=== PATIENT | female | born 1990 | race Caucasian/White ===

== ENCOUNTER 2021-12-28 12:42 | Outpatient (CLI) | payer BC, SELFPAY | END 2021-12-28 12:43 | disposition home or self-care (01) | DX: Z34.90 Encounter for supervision of normal pregnancy, unspecified, unspecified trimester (principal) | CPT/HCPCS: 36415; 84702 ==

== ENCOUNTER 2021-12-31 13:31 | Outpatient (CLI) | payer BC, SELFPAY | END 2021-12-31 13:32 | disposition home or self-care (01) | DX: O03.9 Complete or unspecified spontaneous abortion without complication (principal) | CPT/HCPCS: 36415; 84702 ==

== ENCOUNTER 2022-01-03 13:01 | Outpatient (CLI) | payer BC, SELFPAY ==
[2022-01-03 13:40] LABS: Basophils Percent Auto 0.5 % (0.0-3.0); Eosinophils Percent Auto 5.2 % (0.0-7.0); Hematocrit 41.7 % (33.0-51.0); Immature Granulocytes Abs Auto 0.04 K/uL (0.00-0.30); Lymphocytes Percent Auto 31.8 % (20-44); Mean Corpuscular HGB Conc 34 gm/dL (32-36); Mean Corpuscular Hemoglobin 27 pg (26-34); Mean Corpuscular Volume 79 fL (80-100); Monocytes Percent Auto 6.1 % (0.0-11.0); Neutrophils Percent Auto 56.1 % (42.0-72.0); Platelet Count* 363 K/uL (140-440); RDW Coefficient of Variation % 13.4 % (11.5-15.5); Red Blood Count 5.25 m/uL (4.00-5.20); White Blood Count* 12.57 K/uL (4.50-11.00)
[2022-01-03 13:44] LABS: Slide Review Reflex No
[2022-01-03 13:48] LABS: Albumin* 4.2 g/dL (3.3-5.0)
[2022-01-03 13:49] LABS: Chloride* 105 mmol/L (96-114); Potassium* 3.8 mmol/L (3.6-5.1); Sodium* 138 mmol/L (135-149)
[2022-01-03 13:51] LABS: Aspartate Amino Transferase* 20 U/L (12-35); Bilirubin Total* 0.5 mg/dL (0.1-1.5); Carbon Dioxide* 24 mmol/L (20-32); Creatinine* 0.6 mg/dL (0.5-1.5); Estimated Glomerular Filt Rate 121 ml/min
[2022-01-03 13:52] LABS: Alanine Aminotransferase* 23 U/L (4-35); Alkaline Phosphatase* 84 U/L (40-150); Blood Urea Nitrogen* 9 mg/dL (5-24); Calcium* 8.9 mg/dL (8.4-10.6); Glucose* 91 mg/dL (60-115); Total Protein* 7.4 g/dL (6.0-8.3)
[2022-01-07 07:18] LABS: Progesterone, HPLC-MS/MS 2.49 ng/mL
== END 2022-01-03 13:02 | disposition home or self-care (01) ==
LOC: LAB 13:03
DX: O00.109 Unspecified tubal pregnancy without intrauterine pregnancy (principal)
CPT/HCPCS: 36415; 80053; 84144; 85025

== ENCOUNTER 2022-01-08 15:46 | Outpatient (REF) | payer BC, SELFPAY | END 2022-01-08 15:47 | disposition home or self-care (01) | LOC: LAB 15:46 | DX: O00.109 Unspecified tubal pregnancy without intrauterine pregnancy (principal) | CPT/HCPCS: 36415; 84702 ==

== ENCOUNTER 2022-01-11 13:21 | Outpatient (CLI) | payer BC, SELFPAY | END 2022-01-11 13:22 | disposition home or self-care (01) | DX: O00.109 Unspecified tubal pregnancy without intrauterine pregnancy (principal) | CPT/HCPCS: 36415; 84702 ==

== ENCOUNTER 2022-01-18 11:09 | Outpatient (CLI) | payer BC, SELFPAY | END 2022-01-18 11:10 | disposition home or self-care (01) | DX: O00.109 Unspecified tubal pregnancy without intrauterine pregnancy (principal) | CPT/HCPCS: 36415; 84702 ==

== ENCOUNTER 2022-02-15 14:38 | Outpatient (CLI) | payer BC, SELFPAY ==
[2022-02-15 15:54] LABS: HCG Quantitative* 9.89 mIU/mL
== END 2022-02-15 14:39 | disposition home or self-care (01) ==
DX: O00.101 Right tubal pregnancy without intrauterine pregnancy (principal)
CPT/HCPCS: 36415; 84702

== ENCOUNTER 2022-09-11 12:29 | Outpatient (RCR) | payer BC, SELFPAY ==
[2022-09-12 14:34] LABS: Estradiol Premenol Female <20 pg/mL
[2022-09-16 14:39] LABS: Progesterone, HPLC-MS/MS <0.10 ng/mL
== END 2023-08-24 09:48 | disposition home or self-care (01) ==
LOC: LAB 12:29
PROVIDERS: Visit Provider Physician Assistant Medical
DX: E28.2 Polycystic ovarian syndrome (principal); Z51.89 Encounter for other specified aftercare
CPT/HCPCS: 36415; 82670; 84144

== ENCOUNTER 2023-10-29 11:57 | Outpatient (CLI) | payer BC, SELFPAY ==
[2023-11-03 08:43] LABS: Progesterone, HPLC-MS/MS 39.86 ng/mL
== END 2023-10-29 11:58 | disposition home or self-care (01) ==
LOC: LAB 12:00
PROVIDERS: Visit Provider Physician Assistant
DX: O00.109 Unspecified tubal pregnancy without intrauterine pregnancy (principal)
CPT/HCPCS: 36415; 84144

== ENCOUNTER 2024-02-02 14:28 | Outpatient (RCR) | payer BC, SELFPAY ==
[2022-01-25 14:09] LABS: HCG Quantitative* 163.66 mIU/mL
[2022-02-03 12:58] LABS: HCG Quantitative* 50.53 mIU/mL
[2022-05-24 13:58] LABS: HCG Quantitative* 9.45 mIU/mL
[2022-05-27 14:26] LABS: HCG Quantitative* 48.34 mIU/mL
[2022-05-27 21:12] LABS: Progesterone, HPLC-MS/MS 14.23 ng/mL
[2022-05-30 14:06] LABS: HCG Quantitative* 94.57 mIU/mL
[2022-06-01 01:50] LABS: Progesterone, HPLC-MS/MS 21.84 ng/mL
[2022-06-02 14:32] LABS: HCG Quantitative* 24.84 mIU/mL
[2022-06-02 15:19] LABS: Progesterone, HPLC-MS/MS 21.73 ng/mL
[2022-06-04 11:56] LABS: HCG Quantitative* 9.79 mIU/mL
[2022-06-06 07:03] LABS: Progesterone, HPLC-MS/MS 1.68 ng/mL
[2022-06-06 19:44] LABS: Progesterone, HPLC-MS/MS 1.31 ng/mL
[2022-06-12 15:00] LABS: HCG Quantitative* < 2.39 mIU/mL
[2022-06-16 16:16] LABS: Progesterone, HPLC-MS/MS <0.10 ng/mL
[2023-02-13 14:40] LABS: Albumin* 4.6 g/dL (3.3-5.0)
[2023-02-13 14:41] LABS: Chloride* 105 mmol/L (96-114); Sodium* 140 mmol/L (135-149)
[2023-02-13 14:43] LABS: Anion Gap 8 mEq/L (7-15); Bilirubin Total* 0.7 mg/dL (0.1-1.5); Carbon Dioxide* 27 mmol/L (20-32); Creatinine* 0.6 mg/dL (0.5-1.5); Estimated Glomerular Filt Rate 121 ml/min
[2023-02-13 14:44] LABS: Alanine Aminotransferase* 37 U/L (4-35); Alkaline Phosphatase* 84 U/L (40-150); Aspartate Amino Transferase* 30 U/L (12-35); Blood Urea Nitrogen* 13 mg/dL (5-24); Calcium* 9.8 mg/dL (8.4-10.6); Glucose* 77 mg/dL (60-115); Total Protein* 8.2 g/dL (6.0-8.3)
[2023-03-05 15:05] LABS: Free T4 Free Thyroxine* 1.69 ng/dL (0.70-1.85)
[2023-03-07 23:53] LABS: Total T3 131 ng/dL (80-200)
[2023-04-09 14:47] LABS: Albumin* 4.4 g/dL (3.3-5.0); Chloride* 106 mmol/L (96-114); Potassium* 3.9 mmol/L (3.6-5.1); Sodium* 142 mmol/L (135-149)
[2023-04-09 14:50] LABS: Alanine Aminotransferase* 35 U/L (4-35); Alkaline Phosphatase* 75 U/L (40-150); Anion Gap 9 mEq/L (7-15); Aspartate Amino Transferase* 25 U/L (12-35); Bilirubin Total* 0.8 mg/dL (0.1-1.5); Blood Urea Nitrogen* 13 mg/dL (5-24); Carbon Dioxide* 27 mmol/L (20-32); Creatinine* 0.6 mg/dL (0.5-1.5); Estimated Glomerular Filt Rate 121 ml/min; Glucose* 99 mg/dL (60-115); Total Protein* 7.9 g/dL (6.0-8.3)
[2023-04-09 14:51] LABS: Calcium* 9.4 mg/dL (8.4-10.6)
[2023-04-09 17:40] LABS: Free T4 Free Thyroxine* 1.77 ng/dL (0.70-1.85)
[2023-04-11 02:25] LABS: Estradiol Premenol Female 56 pg/mL
[2023-04-12 08:59] LABS: Free T3 3.4 pg/mL (2.5-4.3)
[2023-07-09 14:40] LABS: Estradiol Premenol Female 142 pg/mL
[2023-07-10 14:55] LABS: Progesterone, HPLC-MS/MS 26.09 ng/mL
[2023-10-20 22:03] LABS: Progesterone, HPLC-MS/MS 30.05 ng/mL
== END 2024-03-03 14:49 | disposition home or self-care (01) ==
LOC: LAB 14:28
PROVIDERS: Physician Assistant Medical; PCP Internal Medicine; Visit Provider Physician Assistant
DX: O00.90 Unspecified ectopic pregnancy without intrauterine pregnancy (principal); E28.2 Polycystic ovarian syndrome; E03.9 Hypothyroidism, unspecified; I10 Essential (primary) hypertension
CPT/HCPCS: 36415; 80053; 82670; 84144; 84439; 84443; 84480; 84481; 84702

== ENCOUNTER → 2024-10-05 10:50 | Outpatient (RCR) | payer BC, SELFPAY | END | disposition home or self-care (01) | LOC: LAB 09-24 11:00 | PROVIDERS: Visit Provider Physician Assistant | DX: Z53.09 Procedure and treatment not carried out because of other contraindication (principal) ==

== ENCOUNTER 2024-12-02 14:14 | Outpatient (REF) | payer BC, SELFPAY ==
--- OUTSIDE RECORDS SUMMARY | 2024-12-03 00:16 | XMS_ITS | Clinical Summary ---
Author Organization [facility] Address [address] [place] [address] Care Team Providers Care Licensing Coordinator Name Role Phone Shavon Celestin MD Primary Care Provider [phone] Source Comments You are receiving this document as you are listed as the primary care provider,follow-up provider, or the patient has been referred to you for consultation.This is in compliance with the Medicare and[facility] EHR Incentive Program,which states Providers who transition their patient to another setting of careor provider of care or refers their patient to another provider of care shouldprovide summary care record for each transition of care or referral. [facility] Allergies No known active allergies Medications levothyroxine (AKA SYNTHROID) 100 MCG tabletIndications: Primary hypothyroidism (HRC) Take 1 tablet by mouth daily (every 24 hours). 90 tablet 3 08/01/19 16 Active medroxyPROGESTERon e (AKA PROVERA) 10 MG tablet 1 tablet daily for 10 days if no menses and urine test is negative 10 tablet 3 08/01/19 16 Active Additional Information Patient not taking.Reported on 11/01/2022 labetalol (TRANDATE) 100 MG tablet Take 1 Tablet (100 mg) by mouth two times a day. Active labetalol (TRANDATE) 100 MG tablet Take 1 Tablet (100 mg) by mouth two times a day. 60 Tablet 12/18/19 23 Active Active Problems Problem Noted Date Diagnosed Date Primary hypothyroidism 08/01/2015 Other acne 08/20/2006 Overview (01/15/2017): LW Onset: 2004 ; Acne Vulgaris Irregular menstrual cycle 08/20/2006 Overview (01/15/2017): LW Onset: 06/01 ; Menstrual Irregularity NOS Contraceptive management 08/20/2006 Overview (01/15/2017): LW Onset: 07/30 ; Contraceptive Management NOS Immunizations Immunization Administration Dates Next Due 4vHPV (Gardasil) 05/29/2007,12/29/2006, 7 DTP 09/16/1990, 1,02/28/1989,02/28/1989 ,1988,1988,1988, 9 DTaP 10/25/1993 HepB Ped/Adol (0-18 yrs) 09/24/2000 HepB, Unspecified Formulation 04/02/2001, 001 Hib (ActHIB) 11/21/1989 Hib (HbOC) 11/21/1989 MCV4 (Menactra) 12/29/2006 MMR 10/17/1998,11/21/1989,11/21/1989 OPV, Trivalent (Orimune or tOPV) 994,09/16/1990,09/16/1990,1988 ,1988,1988,1988 Td 04/23/2002 Varicella 05/24/1997(Deferred: Immune by Dg ma) Social History Tobacco Use Types Packs/Day Years Used Date Smoking Tobacco: Former Cigarettes Smokeless Tobacco: Never Tobacco Cessation:Counseling Given: Not Answered Comments:Smoking History Packs/day: Comments No Sex and Gender Information Value Date Recorded Sex Assigned at Not on file Legal Sex Female 3:47 AM CDT Gender Identity Not on file Sexual Orientation Not on file Last Filed Vital Signs Vital Sign Reading Time Taken Comments Blood Pressure 149/90 12/17/2022 2:15 PM CDT Pulse 89 12/17/2022 2:15 PM CDT Temperature 36.8 C (98.3 F) 12/17/2022 1:28 PM CDT Respiratory Rate 16 12/17/2022 1:28 PM CDT Oxygen Saturation 100% 12/17/2022 1:28 PM CDT Inhaled Oxygen Concentration - - Weight 98.5 kg (217 lb 1.6 oz) 08/01/2015 1:28 P M MEDICAL RESEARCH TECH Height 160 cm (5' 3) 08/01/2015 1:28 PM MEDICAL RESEARCH TECH Body Mass Index 38.46 08/01/2015 1:28 PM MEDICAL RESEARCH TECH Plan of Treatment Health Maintenance Due Date Last Done Comments DTaP/Tdap/Td Vaccine (6 - Tdap) 04/24/2002 04/23/2002, 10/25/1993, 09/16/1990, Additional history exists Adult Preventive Visit 2006 10/17/1998, 1993 Cervical Cancer Screening Due 12/18/2007 12/17/2007, 08/20/2006 COVID-19 Vaccine ( season) 2024 Influenza Vaccine (#1) 2025 Zoster/Shingles Vaccine (1 of 2) 2038 Hib Vaccine Completed 11/21/1989, 11/21/1989 IPV (Polio) Vaccine Completed 08/25/1993, 09/16/1990, 09/16/1990, Additional history exists HepB Vaccine Completed 04/02/2001, 10/25, 09/24/2000 MCV4 Vaccine Completed 12/29/2006 HPV Vaccine Completed 05/29/2007, 10/2006, 10/28/2006 HIV Screening (Preventive Services) Completed 12/17/2007 Hep C Screening (Preventive Services) Completed 12/17/2007 HepA Vaccine Aged Out No longer eligi ble based on patient's age to complete this topic Meningococcal B Vaccine Aged Out No l onger eligible based on patient's age to complete this topic Pneumococcal Vaccine Aged Out No long er eligible based on patient's age to complete this topic Procedures Procedure Name Priority Date/Time Associated Diagnosis Comments HIV ANTIBODY Routine 12/17/2007 9:45 AM CDT HEPATITIS C ANTIBODY, WITH REFLEX (ANTI-HCV) Routine 12/17/2007 9:45 AM CDT ANATOMICAL PATH LIQUID BASED Routine 12/17/2007 9:37 AM CDT from Last 3 Months or Most Recently Relevant to Health Maintenance Results * HIV Antibody (12/17/2007 9:45 AM CDT) HIV 1/HIV 2 Non Reac Non Reac HP CONVERSION 12/17/2007 9:45 AM CDT [facility] Final Result Performing Organization Address City/[facility] de Phone Number HP CONVERSION * Hepatitis C Antibody, with Reflex (12/17/2007 9:45 AM CDT) Hepatitis C Antibody Non Reac Non Reac HP CONVERSION 12/17/2007 9:45 AM CDT [facility] Final Result Performing Organization Address [facility] de Phone Number HP CONVERSION * Pap Smear (12/17/2007 9:37 AM CDT) PAP Smear Liquid Based SEE TEXT No normal range HP CONVERSION Comment: Patient: RODRIGOSTEVENMARCE CERVICAL CYTOLOGY REPORT Pathology # [id number] Date Obtained: Date Received: CYTOLOGIC IMPRESSION: Negative for intraepithelial lesion or malignancy. Fungal organisms identified. Verified 12/23/07 by: (electronic signature) ADDITIONAL DATA LMP: CLINICAL HIST LIQUID BASED PAP CERVICAL SPECIMEN ADEQUACY: Satisfactory. ENDOCERVICAL CELLS: Present. 12/17/2007 9:37 AM CDT [facility] Final Result Performing Organization Address City/[facility] de Phone Number HP CONVERSION from Last 3 Months or Most Recently Relevant to Health Maintenance Insurance [facility] [id number] [place] [id number] * Guarantor: STEPH RODRIGUEZ Account Type Relation to Patient Date of Phone Billing Address Personal/Family 1947 [id number] [place] [id number] Care Teams Licensing Coordinator Relationship Specialty Start Date End Date Shavon Celestin MD [address] [facility] [address] [place] [address] PCP - General 07/28/15
--- OUTSIDE RECORDS SUMMARY | 2024-12-03 00:16 | XMS_ITS | Encounter Summary ---
Author Organization [facility] Address [address] [place] [address] Care Team Providers Care [facility] Owner Name Role Phone Keena Snow MD Primary Care Provider [phone] Encounter Details Date Type Department Care Team (Late st Contact Info) Description 12/02/2024 Medical Correspondence [facility] Health Information Management [address] [facility] [address] [place] [address] Scan, Non-Provider Social History Tobacco Use Types Packs/Day Years Used Date Smoking Tobacco: Former Smokeless Tobacco: Never Alcohol Use Standard Drinks/Week Comments Not Currently 0 (1 standard drink = 0.6 oz pur e alcohol) [place] Depression Scale Answer Date Recorded Last EPDS Total Score Not on file 09/07/2021 The thought of harming myself has occurred to me . Never 09/07/2021 Adolescent Education Answer Date Record ed Getting School Help Needed Not on file 02/15 Comments No Sex and Gender Information Value Date Recorded Sex Assigned at Not on file Legal Sex Female 9:38 AM CDT Gender Identity Not on file Sexual Orientation Not on file documented as of this encounter Plan of Treatment Not on file documented as of this encounter Visit Diagnoses Not on filedocumented in this encounter Care Teams [facility] Owner Relationship Specialty Start Date End Date Keena Snow MD [facility] [address] [place] [address] PCP - General spraying machine operator 12/25/23 documented as of this encounter
--- OUTSIDE RECORDS SUMMARY | 2024-12-03 00:16 | XMS_ITS | Encounter Summary ---
Author Organization [facility] Address [address] [place] [address] Care Team Providers Care Residential Mortgage Underwriter Name Role Phone Keena Snow MD Primary Care Provider [phone]- [phone] Reason for Visit * Reason Comments Medication Refill Encounter Details Date Type Department Care Team (Late st Contact Info) Description 11/03/2024 Refill [facility] [address] [place] [phone] Keena Snow MD [facility] [address] [place] [phone] Medication Refill Social History Tobacco Use Types Packs/Day Years Used Date Smoking Tobacco: Former Smokeless Tobacco: Never Alcohol Use Standard Drinks/Week Comments Not Currently 0 (1 standard drink = 0.6 oz pur e alcohol) [place] Depression Scale Answer Date Recorded Last EPDS [...] documented as of this encounter Visit Diagnoses Diagnosis Hypothyroidism, unspecified type documented in this encounter Care Teams Residential Mortgage Underwriter Relationship Specialty Start Date End Date Keena Snow MD [facility] [address] [place] [address] PCP - General ski patroller 12/25/23 documented as of this encounter
--- OUTSIDE RECORDS SUMMARY | 2024-12-03 00:16 | XMS_ITS | Clinical Summary ---
Author Organization [facility] Address [address] [place] [address] Care Team Providers Care Information Resources Manager Name Role Phone Keena Snow MD Primary Care Provider [phone]- [phone] Allergies No known active allergies Medications metFORMIN (GLUCOPHAGE) 500 MG tablet Take 500 mg by mouth daily (with breakfast) Active labetalol (NORMODYNE) 300 MG tabletIndications :Chronic hypertension Take 1 tablet (300 mg) by mouth every 12 hours 60 tablet 5 12/26/2023 Active levothyroxine (SYNTHROID/LEVOTH ROID) 175 MCG tabletIndications :Hypothyroidism, unspecified type Take 1 tablet (175 mcg) by mouth daily 30 tablet 5 12/26/2023 Active NIFEdipine ER (ADALAT CC) 30 MG 24 hr tabletIndications :Chronic hypertension Take 1 tablet (30 mg) by mouth daily 30 tablet 5 12/27/2023 Active ibuprofen (ADVIL/MOTRIN) 800 MG tabletIndications :IUFD at less than 20 weeks of gestation Take 1 tablet (800 mg) by mouth every 8 hours as needed 30 tablet 1 12/26/2023 Active Active Problems Problem Noted Date Diagnosed Date IUFD at less than 20 weeks of gestation 12/25/19 24 Malignant neoplasm of fallop michel tube, 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 Encounter for triage in patient 022 09/03/2021 Encounters Date Type Department Care Team Description 12/02/2024 Medical Correspondence [facility] Information Management [address] [place] [address] [address] [place] [address] Scan, Non-Provider 12/01/2024 Transcribe Orders GENERIC EXTERNAL DATA DEPARTMENT Petrona Presley PA-C Chronic hypertension (Primary Dx) 11/19/2024 Orders Only [facility] [place] [address] [place] [address] Ariana Ventura RN History of IUFD (Primary Dx); HTN in , chronic; AMA (advanced maternal age) multigravida 35+ 11/18/2024 Medical Correspondence [facility] Health Information Management [address] [facility] [address] [place] [address] Scan, Non-Provider 11/18/2024 Transcribe Orders [facility] [address] [place] [address] Petrona Presley PA-C related condition, antepartum (Primary Dx) 11/03/2024 Refill [facility] [address] [place] [phone] Keena Snow MD Medication Refill from Last 3 Months Immunizations Immunization Administration Dates Next Due DTAP (<7y) 10/25/1993 HIB (PRP-T) 11/21/1989 HPV Quadrivalent 05/29/2007,12/29/2006, 7 HepB, Unspecified 04/02/2001,11/20/2000 Hepatitis B, Peds (Engerix-B/Recombivax HB) 09/24/2000 Historic Hib Hib-titer 11/21/1989 Historical DTP/aP 09/16/1990, 9,1988,10/22 MMR (MMRII) 12/27/2023,10/17/1998,11/21/1989 Meningococcal ACWY (Menactra ) 12/29/2006 OPV, trivalent, live 08/25/1993,09/16/18 91,1988,10/22 Td (Adult), Adsorbed 04/23/2002 Social History Tobacco Use Types Packs/Day Years Used Date Smoking Tobacco: Former Smokeless Tobacco: Never Alcohol Use Standard Drinks/Week Comments Not Currently 0 (1 standard drink = 0.6 oz pur e alcohol) [place] Depression Scale Answer Date Recorded Last EPDS [...] Sign Reading Time Taken Comments Blood Pressure 110/68 12/27/2023 9:15 AM CDT Pulse 102 12/27/2023 9:15 AM CDT Temperature 36.8 C (98.2 F) 12/27/2023 9:15 AM CDT Respiratory Rate 16 12/27/2023 9:15 AM CDT Oxygen Saturation 98% 12/27/2023 6:00 AM CDT Inhaled Oxygen Concentration - - Weight 95.3 kg (210 lb) 11/03/2022 11:46 AM CDT Height 160 cm (5' 3) 11/03/2022 11:46 AM CDT Body Mass Index 37.2 11/03/2022 11:46 AM CDT Plan of Treatment Health Maintenance Due Date Last Done Comments ADVANCE CARE PLANNING 1988 ANNUAL REVIEW OF HM ORDERS 1988 BMP 1988 YEARLY PREVENTIVE VISIT 10/18/1999 10/17/1998, 10/25 DTAP/TDAP/TD VACCINE (6 - Tdap) 04/24/2002 04/23/2002, 10/25/1993, 09/16/1990, Additional history exists HEPATITIS C SCREENING 2006 PAP 2009 COVID-19 VACCINE ( season) 2024 PHQ-2 (once per calendar year) 2024 TSH W/FREE T4 REFLEX 12/24/2024 12/25/2023 INFLUENZA VACCINE (#1) 2025 DIABETES SCREENING 12/24/2026 12/25/2023 ZOSTER VACCINE (1 of 2) 2038 HEPATITIS B VACCINE Completed 04/02/2001, 11/20/2000, 09/24/2000 MENINGITIS VACCINE Completed 12/29/2006 HPV VACCINE Completed 05/29/2007, 10/2006, 10/28/2006 HIV SCREENING Completed 10/27/2023, 02/23/2021 PNEUMOCOCCAL VACCINE: PEDIATRICS (0 to 5 YEARS) AND AT-RISK PATIENTS (6 to 49 YEARS) Aged Out No longer eligible based on patient's age to complete this topic Procedures Procedure Name Priority Date/Time Associated Diagnosis Comments US IMAGING - HIM SCAN 10/06/2024 12:00 AM CDT HEMOGLOBIN A1C Routine 12/25/2023 5:46 PM CDT TSH WITH FREE T4 REFLEX Routine 12/25/2023 5:46 PM CDT HIV 1&2 ANTIBODY (EXTERNAL RESULT) Routine 10/27/2023 12:00 PM CDT from Last 3 Months or Most Recently Relevant to Health Maintenance Results * US Imaging - HIM Scan (10/06/2024 12:00 AM CDT) Anatomical Region Laterality Modality Other 10/06/2024 us Provider Outside G US ORDERABLES Final Result * TSH with free T4 reflex (12/25/2023 5:46 PM CDT) TSH 3.42 0.30 - 4.20 uIU/mL 12/25/2023 7:02 PM CDT [facility] Blood BLOOD SPECIMEN / Unknown Venipuncture / Unknown 12/25/2023 5:46 PM CDT 12/25/2023 6:06 PM CDT Keena Snow MD LAB - BLOOD ORDERABLES Fin al Result N LABORATORY [facility] [address] [place], [place] [address] * Hemoglobin A1c (12/25/2023 5:46 PM CDT) Hemoglobin A1C 5.1 <5.7 % 12/25/2023 6:52 PM CDT N LABORATORY Comment: Normal <5.7% Prediabetes 5.7-6.4% Diabetes 6.5% or higher Note: Adopted from ADA consensus guidelines. Blood BLOOD SPECIMEN / Unknown Venipuncture / Unknown 12/25/2023 5:46 PM CDT 12/25/2023 6:04 PM CDT Keena Snow MD LAB - BLOOD ORDERABLES Fin al Result [facility] [address] [place] [address], [facility] [[email or web address]] * HIV-1 Antibody (External Result) (10/27/2023 12:00 PM CDT) Pathologist [facility] HIV 1&2 Antibody (External) Nonreactive Nonreactive [place] [facility] 10/27/2023 12:0 0 PM CDT Patient Reported LAB - HIM EXTERNAL RESULT Final Result Performing Organization Address City/[facility] Co de Phone Number [employer] [facility] [address] [phone] from Last 3 Months or Most Recently Relevant to Health Maintenance Insurance [facility] OUT OF STATE BCBS OUT OF STATE Advance Directives For more information, please contact: [phone] * Full Code (Latest Code Status on File) Date Activated Date Inactivated Comments 12/25/2023 4:49 PM 12/27/2023 1:19 PM All basic and advanced life-sustaining interventions are performed as appropriate Question Answer Comments Code status determined by: Other (please documen t) * Full Code Date Activated Date Inactivated Comments 09/03/2021 11:29 AM 09/08/2021 5:05 PM All basic a nd advanced life-sustaining interventions are performed as appropriate Question Answer Comments Code status determined by: Other (please documen t) Care Teams Information Resources Manager Relationship Specialty Start Date End Date Keena Snow MD [facility] [address] [place] [address] PCP - General rules examiner 12/25/23
--- OUTSIDE RECORDS SUMMARY | 2024-12-03 00:16 | XMS_ITS ---
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 Past Treatment and Therapy Plans INFUSION Plan Name Start Date Discontinue Date Treatment Medications Discontinue Reason Plan Provider METHOTREXATE - ECTOPIC - SINGLE DOSE REGIMEN 01/04/2022 07/30/2023 methotrexate Patient Patricia Martinez PA-C
--- OUTSIDE RECORDS SUMMARY | 2024-12-03 00:16 | XMS_ITS | Encounter Summary ---
Author Organization [facility] Address [address] [place] [address] Care Team Providers Care Director Trading Name Role Phone Keena Snow MD Primary Care Provider +1- [phone] Encounter Details Date Type Department Care Team (Late st Contact Info) Description 11/18/[address] [facility] Health Information Management [address] [facility] [address] [place] [address] Scan, Non-Provider Social History Tobacco Use Types Packs/Day Years Used Date Smoking Tobacco: Former Smokeless Tobacco: Never Alcohol Use Standard Drinks/Week Comments Not Currently 0 (1 standard drink = 0.6 oz pur e alcohol) [place] Depression Scale Answer Date Recorded Last EPDS [...] on filedocumented in this encounter Care Teams Director Trading Relationship Specialty Start Date End Date Keena Snow MD [facility] [address] [place] [address] PCP - General eap specialist 12/25/23 documented as of this encounter
--- OUTSIDE RECORDS SUMMARY | 2024-12-03 00:16 | XMS_ITS | Encounter Summary ---
Author Organization [facility] Address [address] [place] [address] Care Team Providers Care Criminal Legal Assistant Name Role Phone Keena Snow MD Primary Care Provider +- [phone] Reason for Referral * CV Cardio consult (Routine) - Pending Review Specialty Diagnoses / Procedures Referred By Contac t Referred To Contact Cardiovascular Disease Diagnoses Chronic hypertension Petrona Presley PA-C [facility] [address] [address] Phone: tel: fax: Referral ID Status Reason Start Date Expiration Date V isits Requested Visits Authorized [id number] Pending Review 12/01/2024 12/01/2025 1 1 Question Answer Reason for Consult: Cardio-OB Patient Scheduling Instructions: [facility] will call you to coordinate your care as prescribed by your provider. If you don't hear from a customer success representative within 2 business days, please call [phone]. Comments Please be aware that coverage of these services is subject to the terms and limitations of your health insurance plan. Call member services at your health plan with any benefit or coverage questions. [facility] will call you to coordinate your care as prescribed by your provider. If you don't hear from a customer success representative within 2 business days, please call [phone]. Encounter Details Date Type Department Care Team (Latest Contact Info) Description 12/01/2024 Transcribe Orders GENERIC EXTERNAL DATA DEPARTMENT Petrona Presley PA-C [facility] [address] [phone] Chronic hypertension (Primary Dx) Social History Tobacco Use Types Packs/Day Years Used Date Smoking Tobacco: Former Smokeless Tobacco: Never Alcohol Use Standard Drinks/Week Comments Not Currently 0 (1 standard drink = 0.6 oz pur e alcohol) [place] Depression Scale Answer Date Recorded Last EPDS [...] as of this encounter Plan of Treatment Scheduled Referrals Name Type Priority Associated Diagnoses Orde r Schedule Adult Cardiology Eval Mason Apprentice Referral Referral Routine Chronic hypertension Expected: 12/01/2024 (Approximate), Expires: 12/01/2025 documented as of this encounter Visit Diagnoses Diagnosis Chronic hypertension- Primary documented in this encounter Care Teams Criminal Legal Assistant Relationship Specialty Start Date End Date Keena Snow MD [facility] [address] [place] [address] PCP - General health policy nurse 12/25/23 documented as of this encounter
--- OUTSIDE RECORDS SUMMARY | 2024-12-03 00:16 | XMS_ITS | Encounter Summary ---
Author Organization [place] Address [address] [place] [address] Care Team Providers Care Shoe Lay Out Planner Name Role Phone Keena Snow MD Primary Care Provider +- [phone] Reason for Referral * Consultation (Routine: Next available opening) - Pending Review Specialty Diagnoses / Procedures Referred By Contac t Referred To Contact Diagnoses related condition, antepartum Petrona Presley, MARI [facility] [address] [address] Phone: tel: fax: [facility] [address] [place] [address] Phone: tel: fax: Referral ID Status Reason Start Date Expiration Date V isits Requested Visits Authorized [id number] Pending Review 11/18/2024 11/18/2025 1 1 Question Answer Preferred Location: [facility] Working Due Date: 06/06/2025 US Ordering Instructions: If US ONLY is requested, select appropriate US Order and DO NOT order MFM Consult. Reason for Referral: Ultrasound, Consult Ultrasound - Includes Interpretation/Recommendations (*indicates inclusion of genetic counseling): Comprehensive US (>= 18w0d GA) Consult Type: MFM MD (Consult may be ordered for clinical questions beyond US interpretation) Indication (* indicates inclusion of genetic counseling): Other (enter details in Comments) - AMA, cHTN, hx 2nd tri loss, RPL Fax number results need to be sent to: Dahiana Barr, ([phone] Comments There is no height or weight on file to calculate BMI. >> Patient may proceed with recommendations for further testing as directed by the Maternal Medicine Specialist >> >> If requesting Echo: MFM will determine appropriate location for exam due to indication. Please be aware that coverage of these services is subject to the terms and limitations of your health insurance plan. Call member services at your health plan with any benefit or coverage questions. Encounter Details Date Type Department Care Team (Latest Contact Info) Description 11/18/2024 Transcribe Orders [facility] [place] [address] [place] [address] Petrona Presley PA-C [facility] [address] [address] related condition, antepartum (Primary Dx) Social History Tobacco Use Types Packs/Day Years Used Date Smoking Tobacco: Former Smokeless Tobacco: Never Alcohol Use Standard Drinks/Week Comments Not Currently 0 (1 standard drink = 0.6 oz pur e alcohol) [place] Depression Scale Answer Date Recorded Last EPDS [...] Type Priority Associated Diagnoses Orde r Schedule [facility] Ctr Referral - Referral Routine: Next available opening related condition, antepartum Expected: 11/18/2024 (Approximate), Expires: 05/17/2025 documented as of this encounter Visit Diagnoses Diagnosis related condition, antepartum- Primary documented in this encounter Care Teams Shoe Lay Out Planner Relationship Specialty Start Date End Date Keena Snow MD [facility] [address] [place] [address] PCP - General leather colorer 12/25/23 documented as of this encounter
--- OUTSIDE RECORDS SUMMARY | 2024-12-03 00:16 | XMS_ITS | Clinical Summary ---
Author Organization [employer] [facility] Address [address] [place] [address] Care Team Providers Care Partnership Marketing Manager Name Role Phone Ricardo Stevenson Primary Care Provider Unavailabl e Allergies No known active allergies Active Problems Problem Noted Date Diagnosed Date [facility] Supervision of high risk , antepart 11/19/2024 Overview (11/19/2024): SRO GC - Completed [x] Patient name: Marce Lopez : 1990 Age: 34 y.o. Date of SRO: 11/19/2024 Estimated Date of Delivery: 06/15/25 by 6wu/s Gest Age: 10w2d G/P: Current BMI: 39 REFERRING PROVIDER/CLINIC LOCATION/FAX #: Betty White PA-C - [facility] Primary MD approves scheduling of recommended ultrasounds/testing: Yes Reason for referral: Hx of SAB at 18w2d in 12/2023; Genetic Screening/Testing options Please schedule the following: [x] Sanders [] Multiples: [] Consult [] Ultrasound: - N/A [] Lab: [x] Genetic Counseling [] Before [] After []15 [] 30 [x]45 []CVS []Amnio [] BMI > 40 [] Poll Clerk - Language [] [place]: Location Specialty Days Any [facility] Clinic [] In-person [] Virtual [x] Either N/A Comments: Can be scheduled virtual or in-person. If in person, please add laborer livestock to follow RN: Lead Supply Worker: QASIM: Sherrie Valencia MS, EDUARDO MD/Provider: Date:11/19/2024 Urgency: Within 1-2 weeks [x]Can be sooner [] Can be split Encounters Date Type Department Care Team Description 11/30/2024 Travel 11/30/2024 Orders Only [facility] [address] [place] [address] Zoie Ballard MS, CGC 1 scan: (1-Ord) LONG, 1PANORAMA CF DNA SCREEN, 11/23/2024 11/30/2024 Telephone [facility] [address] [place] [address] Zoie Ballard MS, CGC 11/23/2024 Telephone [facility] [address] [facility] [address] [place] [address] Zoie Ballard MS, CGC 11/23/2024 Telephone [facility] [address] [place] [address] [place], [place] Appointment 11/22/2024 7:36 AM CDT - 11/22/2024 11:59 PM CDT Hospital Encounter [facility] [address] [place] [address] Betty White PA-C High risk , antepartum (HC) 11/22/2024 Orders Only [facility] [address] [place] [address] Zoie Ballard MS, CGC <No scans attached> 11/22/2024 Telephone [facility] [address] [place] [address] [place] Appointment 11/22/2024 Orders Only [facility] [address] [place] [address] Zoie Ballard, MS, CGC <No scans attached> 11/22/2024 Orders Only [facility] [address] [place] [address] Zoie Ballard, MS, CGC <No scans attached> 11/22/2024 Travel 11/19/2024 Orders Only [facility] Scanner 1 scan: (1-Ord) INCOMING RECORDS-[facility], [facility], 11/19/2024 11/19/2024 Orders Only [facility] Scanner 1 scan: (1-Ord) INCOMING RECORDS-LABS, [facility], 11/19/2024 11/19/2024 Transcribe Orders [facility] [address] [facility] [address] [place] [address] Betty White PA-C 11/19/2024 Transcribe Orders [facility] [address] [place] [address] Betty White PA-C 11/19/2024 Transcribe Orders [facility] [address] [address] Betty White PA-C from Last 3 Months Social History Tobacco Use Types Packs/Day Years Used Date Smoking Tobacco: Never Assessed Social Connections Answer Date Recorded Frequency of Communication with Friends and Fami ly Not on file 08/14/2021 Comments Unknown Sex and Gender Information Value Date Recorded Sex Assigned at Not on file Legal Sex Female 9:27 AM CDT Gender Identity Not on file Sexual Orientation Not on file Obstetrics History Para Term AB IAB SAB Ectopic Multiple Livin g Live Births 1 Date Outcome GA Total Labor Labor/2nd/3rd Weight Sex Type Anes PTL Harmony A1 A5 Name Clin Last Filed Vital Signs Vital Sign Reading Time Taken Comments Blood Pressure 106/55 08/14/2021 8:48 AM CDT Pulse 95 08/14/2021 8:48 AM CDT Temperature 36.9 C (98.5 F) 08/14/2021 8:48 AM CDT Respiratory Rate - - Oxygen Saturation - - Inhaled Oxygen Concentration - - Weight - - Height - - Body Mass Index - - Plan of Treatment Upcoming Encounters Date Type Department Care Team (Late st Contact Info) Description 12/30/2024 9:45 AM CDT Appointment [facility] [address] [place] [address] 01/26/2025 12:45 PM CDT Appointment [facility] [address] [place] [address] Health Maintenance Due Date Last Done Comments Tetanus booster 08/27/1999 Depression screening for age 12+ 2000 HIV for age 15-65 08/27/2003 BMI (ht and wt on same day) for age 18+ 2006 Hepatitis C screening for ag e 18-79 2006 Hepatitis B series for 19+ ( 1 of 3 - 19+ 3-dose series) 08/27/2007 Pap test for age 21-65 2009 COVID-19 vaccine series (2023- season) 2024 Influenza Vaccine (#1) 2025 Pneumococcal series for age 6-49 Aged Out No longer eligible based on patient's age to complete this topic Procedures Procedure Name Priority Date/Time Associated Diagnosis Comments DNA SCREEN SEND OUT Routine 11/23/2024 12:00 AM CDT Supervision of high risk in first trimester (HC) SCAN CORRESP-LABORATORY RESULTS 11/19/2024 12:00 AM CDT SCAN CORRESP-IMAGING 11/19/2024 12:00 AM CDT from Last 3 Months Results * DNA SCREEN SEND OUT (11/23/2024 12:00 AM CDT) Other BLOOD SPECIMEN / Unknown us Zoie Ballard MS, CGC SEND OUTS Fin al Result * SCAN CORRESP-LABORATORY RESULTS (11/19/2024 12:00 AM CDT) us Scanner OTHER Final Result * SCAN CORRESP-IMAGING (11/19/2024 12:00 AM CDT) Anatomical Region Laterality Modality Other us Scanner OTHER Final Result from Last 3 Months Insurance [employer]UE [employer] OF [employer]-[place]-[employer] Care Teams Partnership Marketing Manager Relationship Specialty Start Date End Date Ricardo Stevenson PCP - General 03/07/21
--- OUTSIDE RECORDS SUMMARY | 2024-12-03 00:16 | XMS_ITS | Encounter Summary ---
Author Organization [place] Address [address] [place] [address] Care Team Providers Care Felt Finisher Name Role Phone Keena nSow MD Primary Care Provider +- [phone] Reason for Referral * Consultation (Routine: Next available opening) - Pending Review Specialty Diagnoses / Procedures Referred By Contac t Referred To Contact Diagnoses History of IUFD HTN in , chronic AMA (advanced maternal age) multigravida 35+ Mady Patterson MD [address] [place] [address] Phone: tel: fax: Referral ID Status Reason Start Date Expiration Date V isits Requested Visits Authorized [id number] Pending Review 11/19/2024 11/19/2025 1 1 Question Answer Office Visit Type: MFM Consult Comments Friday Radiologic or PAC * Consultation (Routine: Next available opening) - Pending Review Specialty Diagnoses / Procedures Referred By Contac t Referred To Contact Diagnoses History of IUFD HTN in , chronic AMA (advanced maternal age) multigravida 35+ Mady Patterson MD [address] [place] [address] Phone: tel: fax: Referral ID Status Reason Start Date Expiration Date V isits Requested Visits Authorized [id number] Pending Review 11/19/2024 11/19/2025 1 1 * Diagnostic Imaging Ultrasound (Routine) - Pending Review Specialty Diagnoses / Procedures Referred By Jordana t Referred To Contact Radiology. Diagnoses History of IUFD HTN in , chronic AMA (advanced maternal age) multigravida 35+ Procedures Maternal Nuchal Translucency Mady Patterson MD [address] [facility] [address] [place] [address] Phone: tel: fax: Referral ID Status Reason Start Date Expiration Date V isits Requested Visits Authorized [id number] Pending Review 11/19/2024 11/19/2025 1 1 Encounter Details Date Type Department Care Team (Late Contact Info) Description 11/19/2024 Orders Only [facility] [place] [address] [place] [address] Ariana Ventura RN History of IUFD (Primary Dx); HTN in , chronic; AMA (advanced maternal age) multigravida 35+ Social History Tobacco Use Types Packs/Day Years Used Date Smoking Tobacco: Former Smokeless Tobacco: Never Alcohol Use Standard Drinks/Week Comments Not Currently 0 (1 standard drink = 0.6 oz pur e alcohol) [place] Depression Scale Answer Date Recorded Last EPDS [...] of this encounter Plan of Treatment Scheduled Orders Name Type Priority Associated Diagnoses Orde r Schedule Maternal Nuchal Translucency Imaging Routine History of IUFD HTN in , chronic AMA (advanced maternal age) multigravida 35+ Expected: 12/03/2024 (Approximate), Expires: 09/19/2025 Scheduled Referrals Name Type Priority Associated Diagnoses Orde r Schedule [facility] Genetic Counseling Referral Routine: Next available opening History of IUFD HTN in , chronic AMA (advanced maternal age) multigravida 35+ Expected: 11/19/2024 (Approximate), Expires: 11/19/2025 MFM Office Visit - [facility] Consult Referral Routine: Next available opening History of IUFD HTN in , chronic AMA (advanced maternal age) multigravida 35+ Expected: 11/19/2024 (Approximate), Expires: 11/19/2025 documented as of this encounter Visit Diagnoses Diagnosis History of IUFD- Primary HTN in , chronic Benign essential hypertension complicating , childbirth, and the puerperium, unspecified as to episode of care AMA (advanced maternal age) multigravida 35+ Elderly multigravida with antepartum condition or complication documented in this encounter Care Teams Felt Finisher Relationship Specialty Start Date End Date Keena Snow MD [facility] [address] [place] [address] PCP - General deep fryer assembler 12/25/23 documented as of this encounter
--- OUTSIDE RECORDS SUMMARY | 2024-12-03 00:16 | XMS_ITS | Patient Health Record ---
Author Organization [facility] Address [address] [facility] [place] [address] Care Team Providers Care Rock Crusher Name Role Phone Shavon Celestin Primary Care Provider [phone] Reason For Referral No Information Medications Medication SIG (Take, Route, Frequency, Duration) Notes Start Date End Date Status Spironolactone 25 MG 1 tablet Orally onc e a day 10/02/2015 Active Levothyroxine Sodium 75 MCG 1 tablet Ora lly Once a day 06/13/2015 Active Immunizations Vaccine Route Administration Date Status Comme nts Tdap (Boostrix), 10+yrs IM Intramuscular 04/07/2015 Administered Per [facility] standing orders. Pt instructed to wait 15 min. Problems Problem Type SNOMED Code ICD Code Onset Dates Problem Status W/U Status Risk Notes Problem Information temporarily unavailable PCOS (polycystic ovarian syndrome) (E28.2) Active confirmed Problem Information temporarily unavailable Hypothyroidism (E03.9) Active confirmed Problem Information temporarily unavailable Anovulation (N97.0) Active confirmed Plan Of Treatment No Information Insurance Providers Payer Name Payer Address Payer Phone Subscriber Number Group Number Insured Name Patient Relationship to Insured Coverage Start Date Coverage End Date [employer] [address] [address] [place], [place] [id number] [phone] [id number] Marce Lopez Self - patient is the insured 7 Medical (General) History Medical History History ICD Code late onset menarche: 14 irregular menses Surgical History Surgery Date(Month/Year) none Hospitalization History Reason Date(Month/Year) knee disclocation right knee
--- OUTSIDE RECORDS SUMMARY | 2024-12-03 00:16 | XMS_ITS | Clinical Summary ---
Author Organization [facility] Address [address] [place] [address] Care Team Providers Care Reel Slitter Name Role Phone Unavailable Primary Care Provider Unavailabl e Source Comments Patient records contain information from all sites at [facility]. For routine questions regarding patient records, call [phone] during business hours, M-F 8:00 AM - 5:00 PM Central Time. Record requests for emergency care only can be directed to [phone] at any time.[facility] Allergies No known active allergies Medications progesterone (PROMETRIUM) 200 mg capsule TAKE 2 CAPS BY MOUTH AT BEDTIME X10 DAYS 10/27/2023 Active metFORMIN (GLUCOPHAGE) 500 mg tablet Take 500 mg by mouth. Active levothyroxine (SYNTHROID, LEVOTHROID) 125 mcg tablet Take 125 mcg by mouth daily. Active labetaloL (NORMODYNE) 100 mg tablet Take 100 mg by mouth. 12/17/2022 Active Social History Tobacco Use Types Packs/Day Years Used Date Smoking Tobacco: Never Assessed Comments Unknown Sex and Gender Information Value Date Recorded Sex Assigned at Not on file Legal Sex Female 3:35 PM CDT Gender Identity Not on file Sexual Orientation Not on file Last Filed Vital Signs Vital Sign Reading Time Taken Comments Blood Pressure 154/100 11/02/2023 3:57 PM CDT Pulse 108 11/02/2023 3:57 PM CDT Temperature 37.5 C (99.5 F) 11/02/2023 3:56 PM CDT Respiratory Rate - - Oxygen Saturation 98% 11/02/2023 3:56 PM CDT Inhaled Oxygen Concentration - - Weight - - Height - - Body Mass Index - - Plan of Treatment Health Maintenance Due Date Last Done Comments Cervical/Vaginal Cancer Screening 1990 HIV Screening 1990 Hepatitis C Screening 1990 Lipid (Cholesterol) Screening 1990 Hepatitis B Vaccines (3 of 3 - 3-dose series) 05/28/2001 04/02/2001, 11/20/2000 DTaP,Tdap,and Td Vaccines (6 - Tdap) 04/24/2002 04/23/2002, 10/25/1993, 09/16/1990, Additional history exists COVID-19 Vaccine ( season) 2024 Depression Screening (Annual PHQ-2) 05/26/2024 Thyroid Stimulating Hormone (TSH) test for thyroid function 12/24/2024 12/25/2023 Influenza Vaccine (#1) 2025 HPV Vaccines Completed 05/29/2007, 10/2006, 10/28/2006 IPV Vaccines Aged Out No longer eligi ble based on patient's age to complete this topic Pneumococcal vaccine (0-49 years) Aged Out No longer eligible based on patient's age to complete this topic Insurance [facility]
--- OUTSIDE RECORDS SUMMARY | 2024-12-03 00:17 | XMS_ITS | Encounter Summary ---
Author Organization [facility] Address [address] [place] [address] Care Team Providers Care Power Press Supervisor Name Role Phone Shavon Celestin MD Primary Care Provider [phone] Encounter Details Date Type Department Care Team (Latest Contact Info) Description 07/31/1996 Orders Only Sriram Jimenez MD [facility] [address] [place] [address] Social History Tobacco Use Types Packs/Day Years [...] on filedocumented in this encounter Care Teams Power Press Supervisor Relationship Specialty Start Date End Date Shavon Celestin MD [address] [facility] [address] [place] [address] PCP - General 07/28/15 documented as of this encounter
== END 2024-12-02 14:15 | disposition home or self-care (01) ==
LOC: NPINS 14:14
PROVIDERS: Visit Provider Physician Assistant
DX: O09.01 Supervision of pregnancy with history of infertility, first trimester (principal)
CPT/HCPCS: 84144